=== PATIENT | male | born 1965 | race Caucasian/White ===

== ENCOUNTER 2017-01-08 03:21 | Inpatient (IN) | payer OTHER ==
[~2017-01-08] VITALS: Ht 188 cm; Wt 113.4 kg
--- NOTE | 2017-01-08 03:27 | NUR ---
PT A/OX4 BREATHING EFFORTLESSLY ON ROOM AIR, PT IS AN OK TO BOOK, PT IS C/O LEFT HIP ABSCESS X 1 WEEK AND STATES IT OPENED UP YESTERDAY, PT ON MONITOR, [employer] OFFICERS AT BEDSIDE, MD MADE AWARE WILL CONTINUE TO MONITOR.
[2017-01-08] MEDS ORDERED: VANCOMYCIN 1 GM in IV D5W 250 ML IV ONE (03:30)
[2017-01-08] MEDS ORDERED: ACETAMINOPHEN 325 MG TABLET PO PRN (04:00)
[2017-01-08] MEDS ORDERED: Z GUARD REMEDY 2 OZ OINT TP PRN (04:00)
[2017-01-08] MEDS ORDERED: MAG HYDROX/AL HYDROX/SIMETH 30 ML UDC PO PRN (04:00)
[2017-01-08] MEDS ORDERED: ONDANSETRON HCL/PF 4 MG/2 ML VIAL IVP PRN (04:00)
[2017-01-08] MEDS ORDERED: HYDROCODONE/APAP 5/325MG 1 EACH TABLET PO PRN (04:00)
[2017-01-08] MEDS ORDERED: MAGNESIUM HYDROXIDE 30 ML UDC PO PRN (04:00)
[2017-01-08] MEDS ORDERED: MORPHINE SULFATE INJ 2 MG/ML DISP.SYRIN IV PRN (04:00)
[2017-01-08] MEDS ORDERED: ZOLPIDEM TARTRATE 5 MG TABLET PO PRN (04:00)
[2017-01-08 04:20] LABS: EOSINOPHILS # (AUTO) 0.1 /CMM (0.0-0.7); EOSINOPHILS % (AUTO) 1.9 % (0.0-6.0); HEMATOCRIT 36 % (39-51); HEMOGLOBIN 11.8 g/dL (13.5-17.5); LYMPHOCYTES # (AUTO) 1.8 /CMM (0.8-4.8); MEAN CORPUSCULAR HEMOGLOBIN 28 PG (26.0-33.0); MEAN CORPUSCULAR HGB CONC 33 g/dl (31.0-36.0); MEAN CORPUSCULAR VOLUME 84 fL (80-96); MONOCYTES # (AUTO) 0.5 /CMM (0.1-1.30); MONOCYTES % (AUTO) 6.8 % (2.0-12.0); NEUTROPHILS # (AUTO) 5.1 /CMM (1.8-8.9); NEUTROPHILS % (AUTO) 67.3 % (43.0-81.0); PLATELET COUNT (AUTO) 235 /CMM (150-450); RDW COEFFICIENT OF VARIATION 16.6 (11.5-15.0); RED BLOOD CELL COUNT(AUTO) 4.27 MIL/uL (4.5-6.0); WHITE BLOOD COUNT (AUTO) 7.5 K/uL (4.3-11.0)
[2017-01-08] MEDS ORDERED: VANCOMYCIN 1 GM VIAL ONE (04:28)
[2017-01-08 04:31] LABS: CALCIUM, SERUM 8.4 mg/dL (8.5-10.1); CREATININE 0.9 mg/dL (0.6-1.3)
[2017-01-08 04:36] LABS: INR 0.95 (0.87-1.13); PROTHROMBIN TIME 10.1 SECS (9.5-12.7)
[2017-01-08 05:05] VITALS: BP 143/75
--- NOTE | 2017-01-08 05:05 | NUR ---
MS RN NOTES RECEIVED PT FROM ER VIA STRETCHER, TRANSFERRED TO BED SAFELY. ACCOMPANIED WITH 2 [employer]. PT IS AWAKE, A/O X 3 VERBALLY RESPONSIVE, NO DISTRESS, NO SOB NOTED. RESPIRATION IS EVEN AND UNLABORED. REJ IV IS INTACT AND PATENT, NO S/S OF INFILTRATION NOTED. BODY ASSESSMENT DONE. PT IS CONTINENT OF URINE AND BM. DENIES ANY PAIN OR DISCOMFORT AT THIS TIME. SPONGE BATH DONE. ALL NEEDS ATTENDED AND MET . KEPT COMFORTABLE. CALL LIGHT WITHIN REACH. WILL CONT TO MONITOR. SAFETY PRECAUTIONS OBSERVED.
--- NOTE | 2017-01-08 05:30 | NUR ---
PLACED A CALL TO DR. EAST AND CLARIFIED ADMISSION ORDER, PER DR. EAST ADMIT PT TO MED SURG, NOTED AND CARRIED OUT.
[2017-01-08 05:31] LABS: ALBUMIN 3.2 g/dL (3.4-5.0); BILIRUBIN,TOTAL 0.3 mg/dL (0.2-1.0); TOTAL PROTEIN, SERUM 7.4 g/dL (6.4-8.2)
[2017-01-08] MEDS: MEROPENEM 1 G in IV NS 0.9% 100 ML IV SCH ×3 (06:00→20:17)
[2017-01-08] MEDS ORDERED: MEROPENEM 1 G VIAL IV ONE (06:02)
[2017-01-08] MEDS: IV NS 0.9% 1,000 ML IV PRN ×2 (06:29→17:11)
--- NOTE | 2017-01-08 07:10 | NUR ---
MS RN NOTES PT IS RESTING AT THIS TIME, AROUSES EASILY. , A/O X 3 VERBALLY RESPONSIVE, NO DISTRESS, NO SOB NOTED. RESPIRATION IS EVEN AND UNLABORED. REJ IV IS INTACT AND PATENT, NO S/S OF INFILTRATION NOTED. IVF INFUSING WELL. NO C/O ANY PAIN OR DISCOMFORT AT THIS TIME. ALL NEEDS ATTENDED AND MET . KEPT COMFORTABLE. CALL LIGHT WITHIN REACH. WILL ENDORSE TO NEXT SHIFT FOR MARILIA.
[2017-01-08] MEDS: PANTOPRAZOLE 40 MG TABLET.DR PO SCH (07:30)
[2017-01-08 08:00] VITALS: BP 143/75
[2017-01-08] MEDS ORDERED: FEE PK DOSING 1 MIN EA MC ONE (08:06)
[2017-01-08] MEDS ORDERED: VANCOMYCIN 1.5 GM in IV D5W 500 ML IV SCH (09:00)
--- NOTE | 2017-01-08 09:00 | NUR ---
MS/spike machine feeder Head to toe assessment completed at bedside.
--- NOTE | 2017-01-08 09:30 | NUR ---
MS/RN S/B Dr Pierce. Seen by Dr Pierce - patient to remain NPO, Dr Garsia contacted by MD for consult.
--- NOTE | 2017-01-08 11:07 | NUR ---
MS/RN Police custody Patient released from police custody.
--- NOTE | 2017-01-08 14:00 | NUR ---
MS/RN Orders Spoke with Dr Pierce - Dr Garsia still seeing patient's in the office at this time and will see patient later. May order regular diet for patient.
[2017-01-08] MEDS: VANCOMYCIN 1.5 GM in IV D5W 500 ML IV SCH (15:41)
[2017-01-08 16:00] VITALS: BP 150/87
--- NOTE | 2017-01-08 16:00 | NUR ---
MS/RN Room change Patient's room changed to 316-1.
--- NOTE | 2017-01-08 16:10 | NUR ---
MS/RN Withdrawal Patient complaining that he is starting to withdrawal from heroin. Dr Pierce called for orders.
--- NOTE | 2017-01-08 16:35 | NUR ---
MS/RN ORDERS Order given for ativan 0.5mg every 4 hours prn for agitation and withdrawal.
[2017-01-08] MEDS: LORAZEPAM INJ 2 MG/ML VIAL IV PRN (17:11)
--- NOTE | 2017-01-08 17:53 | NUR ---
MS/RN S/B Surgery Seen by Anastasia WARD - excisional debridement at bedside and to continue with current IVAB therapy.
--- NOTE | 2017-01-08 18:14 | NUR ---
MS/RN End note Patient remians calm and cooperative since ativan was administered. No complaints or needs. Will endorse to welder 2nd shift.
--- NOTE | 2017-01-08 19:30 | NUR ---
RN NOTES RECEIVED PT. SLEEPING BUT AROUSABLE, A/OX3, N-IV FLUID RUNNING @ 75ML/HR, DENIES PAIN, NO SOB, CALL LIGHT WITHIN REACH, SIDERAILS UPX2 CONTINUE TO MONITOR
[2017-01-08 20:00] VITALS: BP 153/86
[2017-01-08 22:32] VITALS: BP 153/96
[2017-01-09] MEDS: VANCOMYCIN 1.5 GM in IV D5W 500 ML IV SCH ×2 (03:23→16:12)
--- NOTE | 2017-01-09 06:50 | NUR ---
RN NOTES PT TOLD ME LYLY HIS EJ IS LEAKING, TALKED TO THE DAYSHIFT CHARGE NURSE TO GET AN ORDER FOR MIDLINE INSERTION, MORNING CARE RENDERED, PT NEEDS ATTENDED
[2017-01-09] MEDS: MEROPENEM 1 G in IV NS 0.9% 100 ML IV SCH ×3 (06:51→21:28)
[2017-01-09] MEDS: IV NS 0.9% 1,000 ML IV PRN (06:53)
--- NOTE | 2017-01-09 07:18 | NUR ---
MS RN NOTES RECEIVED PT ASLEEP IN BED, EASILY AWAKENS. ALERT AND ORIENTED X 4, NO C/O PAIN OR DISCOMFORTS AT THIS TIME. ON ROOM AIR, BREATHING EVEN AND UNLABORED. IV ACCESS ON RIGHT EJ INTACT AND PATENT, IVF OF NS AT 75ML/HR IN PROGRESS, NO SIGNS OF INFILTRATION NOTED. CALL LIGHT WITHIN REACH. BED LOW AND LOCKED. WILL MAINTAIN ALL SAFETY PRECAUTIONS AND WILL CONTINUE TO MONITOR PT ACCORDINGLY.
[2017-01-09 08:00] VITALS: BP 128/62
--- NOTE | 2017-01-09 08:05 | NUR ---
RN NOTES RECEIVED CALL FROM DR Jacinto MASON AND SAID THAT HE WILL DO THE I&D TODAY AND TO PUT PT ON NPO. EXPLAINED PROCEDURE TO PT AND VERBALIZED UNDERSTANDING. WILL CONTINUE TO MONITOR.
[2017-01-09 08:35] LABS: ALBUMIN 3.4 g/dL (3.4-5.0); BILIRUBIN,TOTAL 0.5 mg/dL (0.2-1.0); CALCIUM, SERUM 8.7 mg/dL (8.5-10.1); CREATININE 0.9 mg/dL (0.6-1.3); MAGNESIUM 1.6 mg/dL (1.8-2.4); POTASSIUM 3.5 mmol/L (3.5-5.1); TOTAL PROTEIN, SERUM 7.9 g/dL (6.4-8.2)
[2017-01-09] MEDS: PANTOPRAZOLE 40 MG TABLET.DR PO SCH (08:35)
[2017-01-09 08:39] LABS: THYROID STIMULATING HORMONE 0.495 uIU/mL (0.358-3.74)
--- NOTE | 2017-01-09 09:44 | NUR ---
RN NOTES PATIENT WENT TO THE BATHROOM WITH HIS IVF AND POLE WITHOUT CALLING STAFF FOR ASSISTANCE. IV ACCESS ON RIGHT EJ DISLODGED. TRY TO INSERT NEW LINE BUT UNSUCCESSFUL. MD MADE AWARE WITH ORDER TO INSERT A MIDLINE. WILL CONTINUE TO MONITOR.
--- NOTE | 2017-01-09 09:47 | NUR ---
RN NOTES PT NOTED WITH LOW PHOS 2.0 AND LOW MG 1.6, MD MADE AWARE WITH ORDER TO GIVE K-DUR 500MG X1 AND MH 1GM/100ML IN D5W X 2 BAGS AND TO CHECK MG AND PHOS LEVEL TOMORROW, 01/10/17. WILL CONTINUE TO MONITOR.
[2017-01-09] MEDS ORDERED: K PHOS NEUTRAL 250 MG TABLET PO ONE (10:00)
[2017-01-09] MEDS ORDERED: Magnesium 1GM/D5W 100ML PREMIX 100 ML IV SCH (10:00)
--- NOTE | 2017-01-09 10:04 | NUR ---
RN NOTES ELECTRICAL SUPERINTENDENT TRIED TO INSERT IV LINE TO PATIENT AND ABLE TO INSERT AT RIGHT FOREARM G# 22. AWAITING FOR INSERTION OF MIDLINE. CHARGE NURSE AWARE AND CALLED LICENSED SOCIAL WORKER REGARDING MIDLINE INSERTION. WILL CONTINUE TO MONITOR.
[2017-01-09] MEDS ORDERED: LIDOCAINE 1%-EPI 1:200,000 SDV 10 ML VIAL IJ ONE (10:30)
[2017-01-09] MEDS ORDERED: SILVER NITRATE APPLICATOR 1 EA BOX TP ONE (10:30)
--- NOTE | 2017-01-09 10:51 | NUR ---
RN NOTES DR Jacinto MASON CAME AND DID I & D OF LEFT HIP ABSCESS, SAME COLLECTED SPECIMEN FOR WOUND CULTURE. DRESSING INTACT, DRY AND CLEAN. WILL CONTINUE TO MONITOR.
[2017-01-09] MEDS: Magnesium 1GM/D5W 100ML PREMIX 100 ML IV SCH ×2 (13:35→15:06)
[2017-01-09 16:00] VITALS: BP 159/78
--- NOTE | 2017-01-09 16:05 | NUR ---
RN NOTES ICU NURSE CAME AND INSERT MIDLINE G# 20 TO RIGHT UPPER ARM OD PT.
[2017-01-09 18:32] LABS: INR 1.04 (0.87-1.13); PROTHROMBIN TIME 11.2 SECS (9.5-12.7)
--- NOTE | 2017-01-09 19:04 | NUR ---
MS RN CLOSING NOTES PT AWAKE AND RESTING IN BED. ALERT AND ORIENTED X 4, NO C/O PAIN OR DISCOMFORTS THROUGHOUT THE DAY. ON ROOM AIR, BREATHING EVEN AND UNLABORED. MIDLINE ON RIGHT UPPER ARM AND PERIPHERAL IV ACCESS ON RIGHT FA INTACT AND PATENT, IVF OF NS AT 75ML/HR IN PROGRESS, NO SIGNS OF INFILTRATION NOTED. CALL LIGHT WITHIN REACH. BED LOW AND LOCKED. ALL SAFETY PRECAUTIONS MAINTAINED. ALL NEEDS AND CARE ATTENDED WELL. WILL ENDORSED TO SMELTER LINER NURSE FOR MARILIA.
--- NOTE | 2017-01-09 19:30 | NUR ---
RN NOTES RECEIVED PATIENT IN BED WITH EYES CLOSED, EASILY AROUSABLE. AO X 3, ABLE TO MAKE NEEDS KNOWN. NO ACUTE DISTRESS NOTED. DENIES ANY PAIN AT THIS TIME. IV SITES PATENT, INTACT; FLUSHED. ON LOW BED WITH BILATERAL UPPER SIDE RAILS UP. CALL LIGHT WITHIN EASY REACH. WILL CONTINUE TO MONITOR.
[2017-01-09 20:00] VITALS: BP 154/85
[2017-01-09 20:46] VITALS: BP 154/85
[2017-01-10] MEDS: VANCOMYCIN 1.5 GM in IV D5W 500 ML IV SCH (03:26)
[2017-01-10] MEDS: MEROPENEM 1 G in IV NS 0.9% 100 ML IV SCH ×3 (05:34→20:54)
--- NOTE | 2017-01-10 06:03 | NUR ---
RN NOTES PATIENT ASLEEP, EASILY AROUSABLE. RESPIRATIONS EVEN. NO SIGNS OF PAIN NOTED. NO SIGNS OF HEROIN WITHDRAWAL NOTED. DUE MEDS GIVEN WITH NO ASE NOTED. NEEDS ATTENDED. SAFETY PRECAUTIONS AND COMFORT MEASURES IN PLACE. WILL GIVE REPORT TO DAY SHIFT FOR CONTINUITY OF CARE.
--- NOTE | 2017-01-10 06:50 | NUR ---
RN NOTES PATIENT WAS REPEATEDLY ASKED TO HAVE LINENS AND CLOTHING CHANGED. PATIENT STRONGLY REFUSED DESPITE ENCOURAGEMENT FROM STAFF. PATIENT'S RIGHTS RESPECTED. WILL ENDORSE TO NEXT SHIFT.
--- NOTE | 2017-01-10 07:41 | NUR ---
RN MS NOTES PATIENT IN BED, ALERT AND ORIENTED, NO DISTRESS NOTED, DENIES PAIN OR DISCOMFORT, PIV ON RFA PATENT AND INTACT, FLUSHES WELL, IVF INFUSING AND TOLERATING WELL, ALL NEEDS ATTENDED AND MET, CALL LIGHT WITHIN REACH, BED LOCKED/LOW POSITION, SIDERAILS X2 UP, WILL CONTINUE TO MONITOR.
[2017-01-10 08:00] VITALS: BP 158/94
[2017-01-10] MEDS: PANTOPRAZOLE 40 MG TABLET.DR PO SCH (08:24)
[2017-01-10 09:39] LABS: CALCIUM, SERUM 7.9 mg/dL (8.5-10.1); MAGNESIUM 1.7 mg/dL (1.8-2.4); PHOSPHORUS 2.5 mg/dL (2.5-4.9); POTASSIUM 3.3 mmol/L (3.5-5.1)
[2017-01-10] MEDS: LACTOBACILLUS RHAMNOSUS GG 1 EACH CAP.SPRINK PO SCH ×2 (09:39→17:23)
[2017-01-10] MEDS ORDERED: VANCOMYCIN 1.25 GM in IV D5W 500 ML IV SCH ×2 (11:00→15:00)
--- NOTE | 2017-01-10 11:05 | NUR ---
MS RN NOTES RECEIVED CARE OF PATIENT FROM MAYCOL ALVARADO. PATIENT C/O SHAKINESS AND ANXIETY. WILL GIVE PRN ATIVAN FOR PATIENT.
--- NOTE | 2017-01-10 11:10 | NUR ---
MS RN NOTES PATIENT DENIES SOB, DIFFICULTY BREATHING OR PAIN. ALL NEEDS IN REACH, BED LOWERED AND LOCKED, RAILS UPX3 FOR SAFETY AND WILL ROUND Q2H OR LESS PER NEEDS.
--- NOTE | 2017-01-10 11:15 | NUR ---
MS RN NOTES REMOVED SALINE LOC IV IT IS PULLED OUT. ATTEMPTED TO FLUSH MIDLINE BUT UNABLE. WILL CALL MIDLINE RN TO ASSIST
--- NOTE | 2017-01-10 11:41 | NUR ---
MS RN NOTES PATIENT AWARE WE ARE NEEDING URINE SAMPLE. WILL NOTIFY US ONCE PROVIDED SAMPLE.
--- NOTE | 2017-01-10 11:50 | NUR ---
MS RN NOTES NO ANSWER FOR MIDLINE RN. MESSAGE TO RN PAPER SEALER SHE IS AWARE
--- NOTE | 2017-01-10 14:37 | NUR ---
MS RN NOTES SPOKE WITH DR SHALINI HERRERA HE WILL SEE PATIENT TO FIX MIDLINE.
[2017-01-10] MEDS: LORAZEPAM INJ 2 MG/ML VIAL IV PRN ×2 (15:10→20:52)
[2017-01-10] MEDS: IV NS 0.9% 1,000 ML IV PRN (15:12)
[2017-01-10 16:00] VITALS: BP 154/81
--- NOTE | 2017-01-10 17:15 | NUR ---
MS RN NOTES NOTIFIED PHARMACY PATIENT K AND MAG DECREASED. THEY WILL ORDER
[2017-01-10] MEDS ORDERED: POTASSIUM CHLORIDE 20 MEQ TAB.PRT.SR PO SCH (17:30)
--- NOTE | 2017-01-10 18:03 | NUR ---
MS RN NOTES SPOKE WITH DR LAVELLE MASON AND PER MD MORALES ORDER WOUND TREATMENT; CLEANSE NS, DAKINS SOAKED GAUZE PACKED IN WOUND AND COVER WITH ABD AND OK TO DC. NOTIFIED PRIMARY MD MARTIN
[2017-01-10] MEDS: Magnesium 1GM/D5W 100ML PREMIX 100 ML IV SCH ×2 (18:11→20:00)
--- NOTE | 2017-01-10 18:46 | NUR ---
MS RN CLOSING PATIENT STABLE NO COMPLICATIONS NO CHANGES. ALL DUE MEDS GIVEN AND ALL NEEDS MET. CALL LIGHT IN REACH BED LOWERED AND LOCKED FOR SAFETY. CARE ENDORSED TO RN FOR MARILIA
--- NOTE | 2017-01-10 19:00 | NUR ---
MS RN NOTES 1ST MAG COMPLETED. HOWEVER MIDLINE IS NOT FLUSHING ANYMORE. ENDORSED TO RN TO F/U WITH .
--- NOTE | 2017-01-10 19:00 | NUR ---
MIDLINE NOT FLUSHING, WITH RESISTANCE, NOTIFIED DR. EAST. ORDERED HEPARIN FLUSH
[2017-01-10 19:31] LABS: APPEARANCE,URINE CLEAR (CLEAR); BILIRUBIN,URINE NEGATIVE (NEGATIVE); BLOOD, URINE NEGATIVE Ery/uL (NEGATIVE); COLOR,URINE YELLOW (YELLOW); KETONES,URINE TRACE (NEGATIVE); LEUKOCYTE ESTERASE ,URINE NEGATIVE (NEGATIVE); NITRITE, URINE NEGATIVE (NEGATIVE); PROTEIN,URINE NEGATIVE (NEGATIVE); UGLUCOSE NEGATIVE (NEGATIVE); UROBILINOGEN,URINE 0.2 EU/dL (0.2)
[2017-01-10 19:50] LABS: BACTERIA,URINE None seen /HPF (None Seen); MUCUS,URINE Rare /LPF (None Seen); RBC,URINE NONE SEEN /HPF (0-2); SQUAMOUS EPITHELIAL CELL,UR Rare /HPF (None Seen); WBC,URINE 0-2 /HPF (0-3)
[2017-01-10 20:00] VITALS: BP 160/78
[2017-01-10] MEDS ORDERED: HEPARIN SODIUM,PORCINE/PF 50 UNIT/5 ML DISP.SYRIN IV SCH (20:00)
[2017-01-10] MEDS ORDERED: LORAZEPAM 0.5 MG TABLET PO PRN (20:00)
--- NOTE | 2017-01-10 20:00 | NUR ---
UNABLE TO ADMINISTER MAGNESIUM IVP, HUI MIDLINE IS CLOGGED
--- NOTE | 2017-01-10 20:00 | NUR ---
PATIENT IN BED, ALERT AND ORIENTED X4, NO SOB, NO RESPIRATORY DISTRESS, DENIES ANY PAIN AT THIS TIME, FEELING ANXIOUS, REQUESTING ATIVAN. MIDLINE IS CLOGGED. RECEIVED AN ORDER FROM DR. EAST TO CONVERT ATIVAN 0.5 MG TO PO.
--- NOTE | 2017-01-10 20:00 | NUR ---
HEPARIN FLUSHED NOT AVAILABLE. ORDER CHANGED TO ALTEPASE 2 MG X1.
[2017-01-10] MEDS ORDERED: ALTEPLASE CATHFLO 2 MG/VIAL ONE (20:16)
[2017-01-10] MEDS ORDERED: WATER FOR INJECTION,STERILE 10 ML ONE (20:22)
[2017-01-10] MEDS ORDERED: ALTEPLASE CATHFLO 2 MG/VIAL IJ ONE (20:30)
--- NOTE | 2017-01-10 20:45 | NUR ---
DR. HERRERA MANAGED TO UNCLOGGED MIDLINE. FOLLOWED DR. HERRERA'S TECHNIQUE, DID NOT LAST LONG, MIDLINE REMAINED UNCLOGGED.
--- NOTE | 2017-01-10 20:53 | NUR ---
ATIVAN 0.5 MG IVP GIVEN, MIDLINE ABLE TO FLUSH, THEN BECOMES CLOGGED AGAIN
--- NOTE | 2017-01-10 21:39 | NUR ---
RIGHT UPPER ARM MIDLINE IS WORKING AT THIS TIME, CATCHING UP WITH MAGNESIUM AND MERREM. WILL CONTINUE TO MONITOR.
--- NOTE | 2017-01-10 22:05 | NUR ---
ALTEPASE ADMINISTERED BY ICU CHARGE NURSE ED. WILL CONTINUE PROCEDURE IN 30 MINUTES
--- NOTE | 2017-01-10 22:30 | NUR ---
AFTER ALTEPASE, RESUMED IV INFUSION. AFTER 5 MINUTES, MIDLINE IS CLOGGED AGAIN. NOTIFIED DR. EAST, MAY START IV LINE TO FOOT. PATIENT IS NOT DIABETIC. NOTIFIED PATIENT.
[2017-01-10] MEDS: VANCOMYCIN 1.25 GM in IV D5W 500 ML IV SCH (23:00)
--- NOTE | 2017-01-10 23:00 | NUR ---
UNABLE TO ADMINISTER VANCOMYCIN IVP, HUI MIDLINE IS CLOGGED.
--- NOTE | 2017-01-11 01:06 | NUR ---
UNABLE TO INSERT PERIPHERAL LINE TO FOOT. PATIENT IS UNCOMFORTABLE AND COMPLAINING OF PAIN.
--- NOTE | 2017-01-11 01:50 | NUR ---
DR. EAST MADE AWARE OF HOLDING MAGNESIUM, MERREM AND VANCOMYCIN IV SECONDARY TO CLOGGED HUI MIDLINE, NEW ORDER OF PICC LINE PLACEMENT IN AM
[2017-01-11] MEDS ORDERED: LORAZEPAM 0.5 MG TABLET ONE (03:36)
--- NOTE | 2017-01-11 04:15 | NUR ---
WOUND CARE TO RIGHT HIP AT THE BEDSIDE. RIGHT HIP WOUND IS 3CM LONG, NO BLEEDING NOTED.
[2017-01-11] MEDS: MEROPENEM 1 G in IV NS 0.9% 100 ML IV SCH ×2 (04:19→13:00)
--- NOTE | 2017-01-11 04:19 | NUR ---
NAEEMREM HELD, HUI MIDLINE CLOGGED. NO OTHER PERIPHERAL LINE ACCESS
[2017-01-11] MEDS: VANCOMYCIN 1.25 GM in IV D5W 500 ML IV SCH (06:08)
--- NOTE | 2017-01-11 06:08 | NUR ---
VANCOMYCIN 1.25 GRAM HELD, HUI MIDLINE CLOGGED, UNABLE TO START PERIPHERAL LINE. MD AWARE
--- NOTE | 2017-01-11 06:48 | NUR ---
PATIENT IS ALERT AND AWAKE, NO SOB, NO DISTRESS, NO COMPLAIN OF PAIN. NOTIFIED BY SERVICE CONSULTANT PATIENT IS HARD STICK, UNABLE TO GET BLOOD SAMPLE. NEEDS ATTENDED, CALL LIGHT WITHIN REACH.
[2017-01-11 08:00] VITALS: BP 156/96
[2017-01-11] MEDS: LACTOBACILLUS RHAMNOSUS GG 1 EACH CAP.SPRINK PO SCH (08:07)
[2017-01-11] MEDS: PANTOPRAZOLE 40 MG TABLET.DR PO SCH (08:07)
--- NOTE | 2017-01-11 08:10 | NUR ---
RN MS NOTES PATIENT ALERT AND ORIENTED, MIDLINE PATENT AND INTACT, FLUSHES WELL WITH NS, IVF INFUSING, ALL DUE MEDS GIVEN ORDERED, ALL NEEDS ATTENDED, SAFETY MEASURES IN PLACED, CALL LIGHT WITHIN REACH, WILL CONTINUE TO MONITOR.
[2017-01-11] MEDS ORDERED: DAKINS FULL STRENGTH (0.5%) 480 ML BOTTLE TOP SCH (09:00)
[2017-01-11] MEDS ORDERED: HYDR-552 PO (09:37)
[2017-01-11] MEDS ORDERED: SULF1TAB48 PO (09:37)
--- NOTE | 2017-01-11 10:00 | NUR ---
RN MS NOTES ASKED THE PATIENT WHERE HE LIVES, HE STATED HE LIVES AT [id number] [place] [address], HOWEVER HIS BELONGINGS ARE WITH [employer], AND HE WILL NEED TO RETRIEVE HIS BELONGINGS, [employer] DEPT ADDRESS IS IN HIS CHART, COPY WILL BE PROVIDED TO THE PATIENT, PER [employer]ULT ATTENDANT HE WILL NEED TO RETRIEVE HIS BELONGINGS ON HIS OWN, WILL PROVIDE A [employer] VOUCHER FOR HIS TRANSPORTATION, INFORMED DR. MARTIN.
--- NOTE | 2017-01-11 14:08 | NUR ---
PASTA MAKER NOTE PATIENT RECEIVED DISCHARGE INSTRUCTIONS AND VERBALIZED UNDERSTANDING, PAPERWORKS SIGNED, PRESCRIPTION GIVEN TO THE PATIENT AND DISCUSSED MEDICATION ADMINISTRATION, BELONGINGS RECONCILED, WALLET AND BIKE KEYS FOUND ALONG WITH CLOTHES AND SHOES, PATIENT SAID HE'S MISSING HIS PHONE AND IT MUST BE AT THE [employer], SKIN ASSESSMENT COMPLETED AND PHOTOS TAKEN, HUI MIDLINE REMOVED, NO BLEEDING NOTED, LEFT THE FACILITY IN STABLE CONDITION VIA TAXI.
== END 2017-01-11 14:07 | disposition home or self-care (01) | DRG 571 ==
LOC: ER 03:24 → MEDSG2 04:55 → MED 16:12
PROVIDERS: ADMIT Internal Medicine; ATTEND Internal Medicine
PROC: 0JBM0ZZ Excision of Left Upper Leg Subcutaneous Tissue and Fascia, Open Approach (ICD-10-PCS; principal; 2017-01-09)
PROC: 0H9JXZZ Drainage of Left Upper Leg Skin, External Approach (ICD-10-PCS; principal; 2017-01-09)
PROC: 05H533Z Insertion of Infusion Device into Right Subclavian Vein, Percutaneous Approach (ICD-10-PCS; 2017-01-10)
DX: L03.116 Cellulitis of left lower limb (principal); E46 Unspecified protein-calorie malnutrition; E44.1 Mild protein-calorie malnutrition; L02.416 Cutaneous abscess of left lower limb; F17.210 Nicotine dependence, cigarettes, uncomplicated; Z68.32 Body mass index [BMI] 32.0-32.9, adult; D64.9 Anemia, unspecified; E66.9 Obesity, unspecified; E83.51 Hypocalcemia; F11.90 Opioid use, unspecified, uncomplicated; E88.09 Other disorders of plasma-protein metabolism, not elsewhere classified
CPT/HCPCS: 36415; 71010-TC; 80048-TC; 80053-TC; 80061-TC; 80076-TC; 80202-TC; 81000-TC; 82746; 83540-TC; 83605-TC; 83735-TC; 84100-TC; 84443-TC; 85025-TC; 85610-TC; 85730-TC; 87040-TC; 87070-TC; 87081-TC; 87086-TC; 87186-TC; 93307-TC; A4606; A6253; A6402; A6403; J1642; J2060; J2185; J2997; J3370; J3475; J3490; J7030; J7060; Z7610